=== PATIENT | male | born 1955 | race Caucasian/White ===

== ENCOUNTER 2024-08-19 08:11 | Emergency (ER) | payer OTHER ==
[2024-08-19] MEDS ORDERED: diphenhydrAMINE 25 MG CAP ONE (08:28)
[2024-08-19] MEDS ORDERED: Dexamethasone 10 MG/ML VIAL ONE (08:28)
== END 2024-08-19 11:24 | disposition home or self-care (01) ==
LOC: BURERS 08:11
DX: T78.3XXA Angioneurotic edema, initial encounter (principal); I10 Essential (primary) hypertension; Z87.891 Personal history of nicotine dependence
CPT/HCPCS: 96372; 99283; J1100